=== PATIENT | female | born 1945 | race Hispanic/Latino ===

== ENCOUNTER → 2020-04-30 | Outpatient (CLI) | payer MEDICARE | LOC: CT 14:09 | PROVIDERS: ATTEND Family Medicine | DX: R42 Dizziness and giddiness (principal) | CPT/HCPCS: 70450 ==

== ENCOUNTER → 2020-08-15 | Outpatient (CLI) | payer MEDICARE | LOC: US 07:23 | PROVIDERS: ATTEND Family Medicine | DX: R10.84 Generalized abdominal pain (principal) | CPT/HCPCS: 76700 ==

== ENCOUNTER → 2020-08-23 | Outpatient (CLI) | payer MEDICARE | LOC: CT 12:12 | PROVIDERS: ATTEND Family Medicine | DX: G44.52 New daily persistent headache (NDPH) (principal) | CPT/HCPCS: 70450 ==

== ENCOUNTER → 2021-04-15 | Outpatient (CLI) | payer MEDICARE | LOC: RAD 13:41 | PROVIDERS: ATTEND Family Medicine | DX: M54.50 Low back pain, unspecified (principal) | CPT/HCPCS: 72110 ==

== ENCOUNTER → 2021-04-25 | Outpatient (CLI) | payer MEDICARE | LOC: MRI 10:53 | PROVIDERS: ATTEND Family Medicine | DX: M54.50 Low back pain, unspecified (principal) | CPT/HCPCS: 72148 ==

== ENCOUNTER → 2022-10-09 | Outpatient (CLI) | payer MEDICARE | LOC: US 08:33 | PROVIDERS: ATTEND Family Medicine | DX: K52.9 Noninfective gastroenteritis and colitis, unspecified (principal) | CPT/HCPCS: 76700 ==